=== PATIENT | male | born 1975 | race Two or more races ===

== ENCOUNTER 2023-10-07 21:10 | Emergency (ER) | payer SELFPAY ==
[2023-10-07 21:14] VITALS: BP 158/100; PULSE 80; RESP 18; TEMP 36.6; O2SAT 98
[2023-10-07] MEDS: Balanced Salt Solution 15 ML BTL OP (21:54)
[2023-10-07] MEDS: Tetracaine 0.5% 4 ML BTL OP (21:55)
[2023-10-07] MEDS: Fluorescein STRIPS 100/BOX 1 MG OP (21:55)
--- NOTE | 2023-10-07 22:00 | DI.CT_ITS ---
Exam(s) CT ORBITS W EXAM: CT ORBITS W CLINICAL HISTORY: lt eye discharge and pain with MONTGOMERY. TECHNIQUE: Imaging Protocol: Axial computed tomography images with coronal and sagittal reformatted images were created and reviewed CONTRAST MATERIAL: Intravenous: Omnipaque 350 Contrast volume:100 COMPARISON: No exams were available for comparison FINDINGS: Globes: The anterior and posterior chambers are intact. Optic Nerves: Normal. Extraocular muscles: Normal. Retrobulbar fat: Normal. Orbital winters: No definite fracture is noted. Superior ophthalmic veins: Normal. Sinuses: There is opacification of a few ethmoid air cells on the left. The remaining visualized par anasal sinuses and visualized mastoid air cells are clear. No air-fluid levels are present. Soft Tissues: There is mild soft tissue swelling in the left periorbital region. No focal fluid patrick ection is seen to suggest an abscess. IMPRESSION: 1. Mild soft tissue swelling around the left periorbital region which may represent a cellulitis. No focal fluid collection is seen to suggest an abscess. 2. Opacification of a few ethmoid air cells otherwise the paranasal sinuses are clear with no air-flu id levels. 3. The orbits and retro-orbital soft tissues are unremarkable. RADIATION DOSE DELIVERED: Total DLP DATA REPOSITORY: All CT scans at this facility are submitted to the National Radiology Data Registry (NRDR) Dose Index Registry (DIR) with the [employer] (ACR). RADIATION OPTIMIZATION: All CT scans at this facility use at least one of these dose optimization te chniques: automated exposure control; mA and/or kV adjustment per patient size (includes targeted exa ms where dose is matched to clinical indication); or iterative reconstruction.
[2023-10-07 22:25] LABS: Abs Immature Grans 0.03 10^3/uL (0.0-0.06); Absolute Basophil Count 0.04 10^3/uL (0.0-0.2); Absolute Eosinophil Count 0.07 10^3/uL (0.0-0.7); Absolute Lymphocyte Count 1.58 10^3/uL (1.2-3.4); Absolute Monocyte Count 0.58 10^3/uL (0.1-0.8); Basophils % 0.4; Eosinophils % 0.7; HCT 42.8 % (40.0-50.0); HGB 14.5 g/dL (13.5-17.5); Immature Grans % 0.3; Lymphocytes % 16.8; MCHC 33.9 % (32.0-36.0); MCV 95 fL (80-95); MPV 8.3 fL (8.0-11.0); Monocytes % 6.2; Neutrophils % 75.6; Platelet Count 375 10^3/uL (130-400); RBC 4.53 10^6/uL (4.36-5.78); RDW 12.9 % (11.8-14.1); RDW-SD 44.4 fL
--- NOTE | 2023-10-07 22:29 | ED.GENADUL_ITS ---
Discharge Plan Discharge Details Chief Complaint: EyeProblem Primary Care Provider: [facility] Provider: Oscar Crook Home Meds and New Rx's Prescriptions: No Action No Known Home Meds [facility] General Mode of arrival: ambulatory . Date/Time Provider Initiated Documentation: 10/07/23 21:23 . Limitations to Documentation: no limitations . Information obtained by: patient and family . HPI Narrative: 48-year-old male presents with chief complaint of eye inflammation. Patient notes left eye swollen and red and painful. Symptoms started last night and have progressively worsened. He now notes left frontal headache. Patient states that he tried to rest today and when he woke up his eyelids were crusty and sealed shut. Patient denies trauma. Patient has no known immunodeficiency. He has not experienced similar in the past. Related Data Home Medications Medication Instructions Recorded Confirmed Unknown [No Known Home Meds] 10/07/23 10/07/23 Allergies Allergy/AdvReac Type Severity Reaction Status Date / Time No Known Allergies Allergy Unverified 10/07/23 21:18 General Stated Complaint: EyeProblem DEIDRA: 3 Review of Systems Eyes Eyes: Reports as per HPI Exam Const General: cooperative and no acute distress HENMT Head: normocephalic Mouth: moist mucous membranes Throat: posterior oropharynx normal Eyes Alignment and Position: alignment normal Periorbital: periorbital findings abnormal left periorbital swelling and periorbital erythema Eyelids: eyelid abnormality left upper eyelid swelling Conjunctivae: normal conjunctivae Sclera: normal sclerae Cornea: corneas normal and fluorescein used Pupils: PERRL EOM: EOM intact bilaterally Other: small dischage, crusting noted on lids Resp Auscultation: clear to auscultation bilaterally, no rales, no rhonchi and no wheezes Cardio Rate: regular rate and not tachycardic Rhythm: regular rhythm Skin General skin exam: no rashes or lesions noted (No vesicular lesions scalp/face) Neuro General: patient alert, patient awake and tone normal Course Vital Signs Vital signs: Vital Signs Temperature 36.6 C 10/07/23 21:14 Pulse 80 10/07/23 21:14 Respiratory Rate 18 10/07/23 21:14 Blood Pressure 158/100 H 10/07/23 21:14 Pulse Oximetry 98 10/07/23 21:14 Temperature 36.6 C 10/07/23 21:14 Temperature Source Skin 10/07/23 21:14 Pulse 80 10/07/23 21:14 Respiratory Rate 18 10/07/23 21:14 Respiratory Effort Normal 10/07/23 21:17 Blood Pressure 158/100 H 10/07/23 21:14 Blood Pressure Position Sitting 10/07/23 21:14 Pulse Oximetry 98 10/07/23 21:14 Oxygen Delivery Method Room Air 10/07/23 21:14 Oxygen Flow Rate 0 10/07/23 21:14 Lab/Test Results Lab/Test Results: Laboratory Tests Range/Units 10/07/23 22:19 WBC (4.4-10.8) 10^3/uL 9.40 RBC (4.36-5.78) 10^6/uL 4.53 Hgb (13.5-17.5) g/dL 14.5 Hct (40.0-50.0) % 42.8 MCV (80-95) fL 95 MCH (27.0-33.0) pg 32.0 MCHC (32.0-36.0) % 33.9 RDW (11.8-14.1) % 12.9 Plt Count (130-400) 10^3/uL 375 MPV (8.0-11.0) fL 8.3 Immature Gran % 0.3 Neutrophils % 75.6 Lymphocytes % 16.8 Monocytes % 6.2 Eosinophils % 0.7 Basophils % 0.4 Nucleated RBC % (0.0-0.3) % 0.0 Absolute Neutrophils (1.2-6.7) 10^3/uL 7.10 H Absolute Lymphocytes (1.2-3.4) 10^3/uL 1.58 Absolute Monocytes (0.1-0.8) 10^3/uL 0.58 Absolute Eosinophils (0.0-0.7) 10^3/uL 0.07 Absolute Basophils (0.0-0.2) 10^3/uL 0.04 Medical Decision Making 2239 --48-year-old male here with left eye inflammation. Patient has pain and swelling with discharge from his left eye. Symptoms started last night and have progressively worsened. On exam he has swelling of his upper lid with some mild swelling and erythema periorbital as well as crusty discharge on his lid. I am concerned for preseptal cellulitis. Consider orbital cellulitis given headache and some pain with EOM. Quality:SDOH Health Related Social Needs: No Data to Display [facility] Social History Smoking/Tobacco Use Status: Never Smoking risk assessment performed?: Yes Alcohol Intake: current Alcohol Intake frequency: holidays/special occasions only Substance use type: does not use
[2023-10-07 22:40] LABS: ALT 33 U/L (16-63); AST 20 U/L (15-37); Albumin 3.8 g/dL (3.4-5.0); Alkaline Phosphatase 101 U/L (46-116); Anion Gap 9.4 mmol/L (3-11); BUN 17 mg/dL (7-18); Bilirubin, Total 0.4 mg/dL (0.2-1.0); CO2 26.6 mmol/L (21.0-32.0); CREATININE 0.8 mg/dL (0.70-1.30); Calcium 8.4 mg/dL (8.5-10.1); Chloride 104 mmol/L (98-107); Estimated GFR 108.49 (mL/min/1.73m2); Glucose 108 mg/dL (74-106); Potassium 3.5 mmol/L (3.5-5.1); Sodium 140 mmol/L (136-145); Total Protein 7.8 g/dL (6.4-8.2)
[2023-10-07] MEDS: Omnipaque 350 MG/ML 100 ML BTL IJ (22:59)
[2023-10-07] MEDS: Normal Saline - Diluent 50 ML VIAL IJ (23:00)
[2023-10-07 23:12] VITALS: BP 133/88; PULSE 69; RESP 18; O2SAT 98
--- NOTE | 2023-10-07 23:37 | ED.PROG_ITS ---
Date of service: 10/07/23 Time of Service: 23:38 Medical Decision Making This patient was signed out to me. Please see previous notes for H&P and initial eval. In brief, 48yo M presenting with left eye pain and swelling, concerning for preseptal vs orbital cellulitis. Signed out pending CT read. CT as below, periorbital cellulitis. On reassessment non-toxic appearing with reassuring vital signs. Discharged home on 7 day course of amox/clauv and bactrim. Discharge instructions and return precautions were reviewed with patient who verbalized understanding. All questions were answered and he is in full agreement with the plan. Imaging Data Radiologic Study: Imaging: CT Scan Radiologist's impression: IMPRESSION: Preseptal left periorbital cellulitis. No intraorbital abnormality or abscess. Quality:SDOH Health Related Social Needs: No Data to Display Sign Out Sign Out Data: Sign Out Comment: Patient is here with left eye inflammation and concern for preseptal versus orbital cellulitis. Plan at signout is to follow-up on CT imaging, reassess for disposition and further treatment. Last updated by Oscar Crook MD at 10/07/23 23:36 Discharge Plan Disposition Patient Disposition: Home Condition: Good Discharge Details Clinical Impression: Periorbital cellulitis Primary Care Provider: [facility] ED Provider: Bisi De La Paz Home Meds and New Rx's Prescriptions: New sulfamethoxazole-trimethoprim [Bactrim DS] 800-160 mg tablet 1 tab PO BID Qty: 14 0RF amoxicillin-pot clavulanate 875-125 mg tablet 1 tab PO Q12H Qty: 14 0RF Discharge Instructions Instructions: Periorbital Cellulitis in Adults (ED) Additional Instructions: Tylenol and ibuprofen over the counter for pain; follow the directions on the b ottle. Two antibiotics twice a day for the next seven days; take them until they are all gone. Call your primary care doctor today to schedule an appointment for next week to follow up on your visit here. Return to the emergency department for new or worsening symptoms including fever, worsening pain, worsening vision, or if your symptoms have not improved after 48 hours.
--- NOTE | 2023-10-07 23:43 | DI.VRAD_ITS ---
PROCEDURE INFORMATION: Exam: CT Orbits With Contrast Exam date and time: 10/07/2023 10:59 PM Age: 48 years old Clinical indication: Other: Lt eye discharge; Eye pain and headache; Left; Additional info: Lt eye discharge and pain with MONGTOMERY TECHNIQUE: Imaging protocol: Computed tomography of the orbits with contrast. Contrast material: OMNI 350; Contrast volume: 100 ml; Contrast route: INTRAVENOUS (IV); COMPARISON: No relevant prior studies available. FINDINGS: Paranasal sinuses: Normal. No air-fluid levels. Orbital cavities: Intraorbital structures appear normal. No evidence of intraorbital inflammation. Eye globes appear intact. Bones/joints: No acute fracture. Soft tissues: Preseptal soft tissue swelling in the left periorbital region. No abnormal soft tissue fluid collection. IMPRESSION: Preseptal left periorbital cellulitis. No intraorbital abnormality or abscess. Dictated and Authenticated by: Efraín Bustamante MD. Ordering:LOLA Moore MD
[2023-10-07] MEDS: Amoxicillin 875/Clav. 125 TAB PO (23:59)
[2023-10-07] MEDS: Sulfameth/Trimeth DS TAB 1 TAB PO (23:59)
== END 2023-10-08 00:11 | disposition home or self-care (01) ==
LOC: ER 10-08 00:16
PROVIDERS: Student in an Organized Health Care Education/Training Program; Emergency Provider Student in an Organized Health Care Education/Training Program
DX: L03.213 Periorbital cellulitis (principal); R51.9 Headache, unspecified
CPT/HCPCS: 00123; 80053; 99285; 70481; 85025; 99284; J3490